=== PATIENT | female | born 2000 | race Caucasian/White ===

== ENCOUNTER 2024-03-23 15:24 | Emergency (ER) | payer OTHER ==
[2024-03-23 15:55] LABS: BILIRUBIN,URINE NEGATIVE (NEGATIVE); GLUCOSE, URINE (UA) NEGATIVE (NEGATIVE); KETONES,URINE (UA) NEGATIVE (NEGATIVE); LEUKOCYTE ESTERASE, URINE TRACE (NEGATIVE); NITRITE,URINE NEGATIVE (NEGATIVE); OCCULT BLOOD,URINE SMALL (NEGATIVE); PH,URINE 5.5 PH (5.0-7.5); PROTEIN,URINE NEGATIVE (NEGATIVE); UROBILINOGEN,URINE 0.2 (NORMAL) E.U./dL (NORMAL)
[2024-03-23 15:58] LABS: CLARITY,URINE HAZY (CLEAR)
[2024-03-23 15:59] LABS: HCG UR QUAL NEGATIVE
[2024-03-23 16:01] LABS: BASOPHILS % (AUTO) 0.4 %; EOSINOPHILS # (AUTO) 0.1 10^3/uL (0.0-0.7); EOSINOPHILS % (AUTO) 0.6 %; HCT - HEMATOCRIT 44.3 % (37.0-47.0); HGB - HEMOGLOBIN 14.8 g/dL (12.0-16.0); LYMPHOCYTES # (AUTO) 1.8 10^3/uL (1.5-3.5); LYMPHOCYTES % (AUTO) 19.3 %; MEAN CORPUSCULAR HEMOGLOBIN 28.1 pg (27.0-31.0); MEAN CORPUSCULAR HGB CONC 33.4 g/dL (32.0-36.0); MEAN CORPUSCULAR VOLUME 84.2 fL (81.0-99.0); MONOCYTES # (AUTO) 0.6 10^3/uL (0.0-1.0); MONOCYTES % (AUTO) 5.9 %; NEUTROPHILS # (AUTO) 6.9 10^3/uL (1.5-6.6); NEUTROPHILS % (AUTO) 73.6 %; PLT - PLATELET COUNT 356 10^3/uL (130-450); RED BLOOD COUNT 5.26 10^6/uL (4.20-5.40); WHITE BLOOD COUNT 9.4 x10^3/uL (4.8-10.8)
[2024-03-23 16:02] LABS: MEAN PLATELET VOLUME 10.2 fL (7.9-10.8); RED CELL DISTRIBUTION WIDTH 12.9 % (12.0-15.0)
[2024-03-23 16:08] LABS: BACTERIA,URINE Few /HPF (None Seen); SQUAMOUS EPITHELIAL CELL,UR FEW Squamous (<= Few)
--- NOTE | 2024-03-23 16:19 | ED Physician Documentation ---
PD HPI ABD PAIN - Stated complaint Stated Complaint: VOMIT/ABD PX - Chief complaint Chief Complaint: Abd Pain - History obtained from History obtained from: Patient - Additional information Additional information: Previous healthy 23-year-old female presents for vomiting and headache. She felt well this morning but this morning after going to the gym she got very fatigued, developed a significant headache and nausea and vomiting. There is no diarrhea with it. She told the nurse that her stomach hurt but she says to me that that her stomach really just feels upset, and her head hurts for worst been the stomach. She denies fevers or chills. No possibility of . Declined pain medication on initial evaluation. PD PAST MEDICAL HISTORY - Past Medical History Past Medical History: No Cardiovascular: None Respiratory: None Neuro: None Endocrine/Autoimmune: None GI: None CLINICAL TRIALS SPECIALIST: None : None HEENT: None Psych: None Musculoskeletal: None Derm: None - Past Surgical History Past Surgical History: No - Present Medications Home Medications: Ambulatory Orders Medication Instructions Recorded Confirmed Ondansetron Odt [Zofran] 4 mg TL Q6H PRN #10 tablet 03/23/24 - Allergies Allergies/Adverse Reactions: Allergies Allergy/AdvReac Type Severity Reaction Status Date / Time clindamycin Allergy Edema Verified 03/23/24 15:35 vancomycin Allergy Edema Verified 03/23/24 15:35 - Social History Does the pt smoke?: Yes Smoking Status: Current every day smoker - Immunizations Immunizations are current?: Yes PD ED PE NORMAL - Vitals Vital signs reviewed: Yes - General General: Alert and oriented X 3, Other (Retching and uncomfortable) - HEENT HEENT: Pharynx benign - Neck Neck: Supple, no meningeal sign, No bony TTP - Cardiac Cardiac: RRR, No murmur - Respiratory Respiratory: No respiratory distress, Clear bilaterally - Abdomen Abdomen: Normal bowel sounds, Soft, Non tender - Neuro Neuro: Alert and oriented X 3, diet kitchen cook 2-12 intact Eye Opening: Spontaneous Motor: Obeys Commands Verbal: Oriented GCS Score: 15 Results - Vitals Vitals: Vital Signs - 24 hr 03/23/24 15:27 Temperature 35.9 C L Heart Rate 87 Respiratory 24 Rate Blood Pressure 125/89 H O2 Saturation 98 Oxygen O2 Source Room air - Labs Labs: Laboratory Tests 03/23/24 03/23/24 03/23/24 15:49 15:49 15:49 WBC 9.4 RBC 5.26 Hgb 14.8 Hct 44.3 MCV 84.2 MCH 28.1 MCHC 33.4 RDW 12.9 Plt Count 356 MPV 10.2 Neut # (Auto) 6.9 H Lymph # (Auto) 1.8 [place] # (Auto) 0.6 Eos # (Auto) 0.1 Baso # (Auto) 0.0 Absolute Nucleated RBC 0.00 Nucleated RBC % 0.0 Sodium 137 Potassium 4.0 Chloride 105 Carbon Dioxide 25 Anion Gap 7.0 BUN 9 Creatinine 0.7 Estimated GFR (MDRD) 102 Glucose 109 H Calcium 9.4 Total Bilirubin 0.4 AST 17 ALT 14 Alkaline Phosphatase 73 Total Protein 6.4 Albumin 4.6 Globulin 1.8 L Albumin/Globulin Ratio 2.6 H Lipase 12 Urine Color YELLOW Urine Clarity HAZY Urine pH 5.5 Ur Specific [place] 1.020 Urine Protein NEGATIVE Urine Glucose (UA) NEGATIVE Urine Ketones NEGATIVE Urine Occult Blood SMALL H Urine Nitrite NEGATIVE Urine Bilirubin NEGATIVE Urine Urobilinogen 0.2 (NORMAL) Ur Leukocyte Esterase TRACE H Urine RBC 6-10 H Urine WBC 6-10 H Ur Squamous Epith Cells FEW Squamous Urine Bacteria Few Ur Microscopic Review INDICATED Urine Culture Comments INDICATED Urine HCG, Qual 03/23/24 15:49 WBC RBC Hgb Hct MCV MCH MCHC RDW Plt Count MPV Neut # (Auto) Lymph # (Auto) [place] # (Auto) Eos # (Auto) Baso # (Auto) Absolute Nucleated RBC Nucleated RBC % Sodium Potassium Chloride Carbon Dioxide Anion Gap BUN Creatinine Estimated GFR (MDRD) Glucose Calcium Total Bilirubin AST ALT Alkaline Phosphatase Total Protein Albumin Globulin Albumin/Globulin Ratio Lipase Urine Color Urine Clarity Urine pH Ur Specific [place] Urine Protein Urine Glucose (UA) Urine Ketones Urine Occult Blood Urine Nitrite Urine Bilirubin Urine Urobilinogen Ur Leukocyte Esterase Urine RBC Urine WBC Ur Squamous Epith Cells Urine Bacteria Ur Microscopic Review Urine Culture Comments Urine HCG, Qual NEGATIVE - Rads (name of study) CT Head- NAD Relevant Findings:: Final report received, EMP independent interpretation of test PD Medical Decision Making - ED course ED course: She presents with vomiting, headache and abdominal pain. She appears well with a benign exam. The headache was worse than her abdominal pain so I did do a CT of the head which was without evidence of anything concerning like a mass or subarachnoid hemorrhage which were on the differential but now or not. CBC, CMP, urinalysis were all normal/negative except for some white cells and red cells in the urine. I queried her if she had any symptoms of UTI and she did not so I probably would not treat this. She was feeling much better after IV fluids and Zofran. Departure - Departure Disposition: Home, Self Care Clinical Impression: Vomiting Qualifiers: Vomiting type: unspecified Nausea presence: with nausea Qualified Code(s): R11.2 - Nausea with vomiting, unspecified Headache Qualifiers: Headache type: unspecified Headache chronicity pattern: acute headache Intractability: not intractable Qualified Code(s): R51.9 - Headache, unspecified Condition: Good Record reviewed to determine appropriate education?: Yes Instructions: ED Cephalgia Unspecified, ED Nausea Vomiting Prescriptions: Ondansetron Odt [Zofran] 4 mg TL Q6H PRN #10 tablet PRN Reason: Nausea / Vomiting Comments: Would like to see you again if you are not better by Saturday morning, anytime if worse, or new symptoms develop. Your CAT scan of your head and labs all looked okay. There were some bacteria in your urine but presume this is just a contaminated sample. If you were to develop urinary symptoms please return as you might need antibiotics in that case but at this point it does not appear that you do. Take it easy and sip fluids for the rest of the day, would not try to eat a lot. Forms: PCP List, Activity restrictions
[2024-03-23] MEDS: ONDANSETRON 4 MG/2 ML VIAL IVP STA (16:30)
[2024-03-23 16:32] LABS: ALBUMIN 4.6 g/dL (3.2-5.5); ALBUMIN/GLOBULIN RATIO 2.6 (1.0-2.2); BILIRUBIN,TOTAL 0.4 mg/dL (0.2-1.0); CALCIUM 9.4 mg/dL (8.5-10.3); CREATININE 0.7 mg/dL (0.6-1.3); TOTAL PROTEIN 6.4 g/dL (6.4-8.9)
[2024-03-23] MEDS: SODIUM CHLORIDE 0.9% 1,000 ML IV STA (16:32)
--- NOTE | 2024-03-23 16:51 | CT Report ---
PROCEDURE: Head WO INDICATIONS: headache TECHNIQUE: Noncontrast 4.5 mm thick angled axial sections acquired from the foramen magnum to the vertex. For r adiation dose reduction, the following was used: automated exposure control, adjustment of mA and/or kV according to patient size. COMPARISON: None. FINDINGS: Image quality: Excellent. CSF spaces: Basal cisterns are patent. No extra-axial fluid collections. Ventricles are normal in size and shape. Brain: No midline shift. No intracranial masses or hemorrhage. Miller-white matter interface is norm al. Skull and face: Calvarium and visualized facial bones are intact, without suspicious lesions. Sinuses: Visualized sinuses and mastoids are clear. IMPRESSION: No acute intracranial pathology. Reviewed by: Ovidio Villaseñor MD on 03/23/2024 4:50 PM PDT Approved by: Ovidio Villaseñor MD on 03/23/2024 4:50 PM PDT Station ID: [id number]
[2024-03-23 17:45] VITALS: BP 122/69; O2SAT 100
== END 2024-03-23 17:33 | disposition home or self-care (01) ==
LOC: ED 15:24
DX: R51.9 Headache, unspecified (principal); R11.2 Nausea with vomiting, unspecified; F17.200 Nicotine dependence, unspecified, uncomplicated
CPT/HCPCS: 36415; 80053; 81001; 81003; 81025; 83690; 85025; 87086; 96374; 99284